=== PATIENT | female | born 1985 | race Hispanic/Latino ===

== ENCOUNTER 2023-05-12 09:02 | Emergency (ER) | payer OTHER ==
[~2023-05-12] VITALS: Ht 162.6 cm; Wt 122.5 kg
[2023-05-12 09:04] VITALS: BP 168/100; PULSE 105; RESP 24
[2023-05-12] MEDS: LIDOCAINE HCL 1% 20 ML VIAL ONE (10:15)
[2023-05-12] MEDS: TETANUS/DIPHTHERIA TOXOID [ADULT] 0.5 ML VIAL IM ONE (10:20)
[2023-05-12] MEDS ORDERED: AMOX1TAB16 PO (10:35)
[2023-05-12] MEDS: LIDOCAINE HCL 1% 20 ML VIAL INJ SCH (10:45)
[2023-05-12] MEDS: CEFTRIAXONE 1G VIAL IM ONE (11:16)
== END 2023-05-12 11:45 | disposition home or self-care (01) ==
LOC: EDH 09:02
DX: S51.812A Laceration without foreign body of left forearm, initial encounter (principal); W55.01XA Bitten by cat, initial encounter; Y93.89 Activity, other specified; Y92.89 Other specified places as the place of occurrence of the external cause; Y99.8 Other external cause status
CPT/HCPCS: 99284; 90714; 73090; 90471; 12004; 96372; J0696